=== PATIENT | male | born 1975 | race Two or more races ===

== ENCOUNTER → 2018-04-21 | Outpatient (CLI) | payer OTHER ==
[2018-04-21 10:33] LABS: BASOPHIL # 0.1 TH/MM3 (0-0.2); EOSINOPHIL # 0.1 TH/MM3 (0-0.4); EOSINOPHIL % 2.7 % (0.0-4.0); HEMATOCRIT 45.7 % (39.0-51.0); HEMOGLOBIN 15.5 GM/DL (13.0-17.0); LYMPH % 32.8 % (9.0-44.0); LYMPHOCYTE # 1.8 TH/MM3 (1.0-4.8); MEAN CELL VOLUME 87.9 FL (80.0-100.0); MEAN CORPUSCULAR HEMOGLOBIN 29.7 PG (27.0-34.0); MEAN CORPUSCULAR HGB CONC 33.8 % (32.0-36.0); MONO % 7.9 % (0.0-8.0); MONOCYTE # 0.4 TH/MM3 (0-0.9); NEUT % 55.6 % (16.0-70.0); PLATELET COUNT 274 TH/MM3 (150-450); RED CELL DISTRIBUTION WIDTH 13.6 % (11.6-17.2); WHITE BLOOD COUNT 5.5 TH/MM3 (4.0-11.0)
[2018-04-21 11:36] LABS: ALBUMIN 4.1 GM/DL (3.4-5.0); AST (GOT) 16 U/L (15-37); BICARBONATE 23.8 MEQ/L (21.0-32.0); BLOOD UREA NITROGEN 14 MG/DL (7-18); CALCIUM 8.8 MG/DL (8.5-10.1); CHLORIDE 105 MEQ/L (98-107); GLOMERULAR FILTRATION RATE 82 ML/MIN (>89); GLUCOSE,FASTING 89 MG/DL (74-99); SODIUM (NA) 138 MEQ/L (136-145)
[2018-04-21 11:37] LABS: CHOLESTEROL 220 MG/DL (120-200)
[2018-04-21 11:47] LABS: ALKALINE PHOSPHATASE 76 U/L (45-117); ALT (GPT) 39 U/L (12-78); CHOLESTEROL/ HDL RATIO 5.83 RATIO; HDL CHOLESTEROL 37.7 MG/DL (40.0-60.0); LDL CHOLESTEROL 157 MG/DL (0-99); TOTAL BILIRUBIN ADULT 0.4 MG/DL (0.2-1.0); TOTAL PROTEIN 7.9 GM/DL (6.4-8.2); TRIGLYCERIDES 127 MG/DL (42-150)
[2018-04-23 03:52] LABS: CARDIO CRP 1.4 mg/L
== END ==
LOC: CLAB 09:58
PROVIDERS: ATTEND Family Medicine
DX: M25.50 Pain in unspecified joint (principal); F43.20 Adjustment disorder, unspecified; E78.5 Hyperlipidemia, unspecified; M25.561 Pain in right knee; M25.512 Pain in left shoulder; Z72.51 High risk heterosexual behavior
CPT/HCPCS: 36415; 80053; 80061; 83001; 83002; 84403; 84410; 84443; 84550; 85025; 86141